=== PATIENT | female | born 1965 | race Caucasian/White ===

== ENCOUNTER 2016-12-22 17:41 | Emergency (ER) | payer OTHER ==
[2016-12-22] MEDS ORDERED: HYDROcod/ACETAM 5/325 MG TABLET PO STA (18:04)
[2016-12-22] MEDS ORDERED: HYDROcod/ACETAM 5/325 MG TABLET ONE (18:08)
--- NOTE | 2016-12-22 18:08 | ED Physician Documentation ---
PD HPI LOWER EXT INJURY - Stated complaint Stated Complaint: R KNEE PAIN - Chief complaint Chief Complaint: Ext Problem - History obtained from History obtained from: Patient, Family, EMS - History of Present Illness PD HPI LOW EXT INJURY LOCATION: Right, Knee Type of injury: Other (states that her [place] out[place], now with increasing pain and unable to bear weight) Where injury occurred: Other (beach) Timing - onset: How many hours ago (1) Timing - duration: Hours (1) Timing - details: Abrupt onset Pain level max: 9 Pain level now: 7 Improved by: Rest, Ice, Immobilization Worsened by: Moving, Palpating Associated symptoms: No: Weakness, Numbness, Tingling, Swelling Contributing factors: No: Anticoagulated, Prior ortho surgery Similar symptoms before: Has not had sx before Recently seen: Not recently seen Review of Systems Constitutional: denies: Fever GI: denies: Vomiting Musculoskeletal: denies: Neck pain, Back pain Neurologic: denies: Focal weakness, Numbness, Head injury PD PAST MEDICAL HISTORY - Past Medical History Past Medical History: Yes Cardiovascular: Coronary artery disease Psych: Anxiety, Post traumatic stress disorder - Present Medications Home Medications: Ambulatory Orders Medication Instructions Recorded Confirmed Gabapentin 12/22/16 Hydrocodone/Acetaminophen 1 - 2 each PO Q6H PRN #14 tablet 12/22/16 [Hydrocodon-Acetaminophen 5-325] Ibuprofen [Motrin] 800 mg PO Q8H PRN #30 tablet 12/22/16 LORazepam [Ativan] 12/22/16 Telmisartan [Micardis] 12/22/16 Zolpidem [Ambien] 12/22/16 - Allergies Allergies/Adverse Reactions: Allergies Allergy/AdvReac Type Severity Reaction Status Date / Time No Known Drug Allergies Allergy Verified 12/22/16 17:50 - Social History Does the pt smoke?: No Smoking Status: Never smoker Does the pt drink ETOH?: Yes - Immunizations Immunizations are current?: Yes PD ED PE NORMAL - Vitals Vital signs reviewed: Yes - General General: Alert and oriented X 3, No acute distress - Derm Derm: Warm and dry - Extremities Extremities: Other (R knee - ACL, MCL, LCL, PCL are intact. Mild joint effusion. Neurovascularly intact. Tenderness along the medial joint line.) - Neuro Neuro: Alert and oriented X 3 - Psych Psych: Normal mood, Normal affect Results - Vitals Vitals: Vital Signs - 24 hr 12/22/16 12/22/16 17:50 19:20 Temperature 36.5 C Heart Rate 94 108 H Respiratory 17 18 Rate Blood Pressure 132/84 H 146/84 H O2 Saturation 99 96 Oxygen O2 Source Room air - Rads (name of study) R knee xray Radiology: Prelim report reviewed, EMP read contemporaneously, See rad report ( normal) PD MEDICAL DECISION MAKING - ED course Complexity details: reviewed results, re-evaluated patient, considered differential, d/w patient ED course: Patient is a 51-year-old female who presents to the emergency department with what appears to be a right knee sprain. Placed in a knee immobilizer for comfort. Ambulating well with crutches. No acute findings on x-ray. Knee is stable on examination. Possible meniscus injury? Will have her follow-up with her doctor for further evaluation and care. Patient counseled regarding signs and symptoms for which I believe and urgent re-evaluation would be necessary. Patient with good understanding of and agreement to plan and is comfortable going home at this time This document was made in part using voice recognition software. While efforts are made to proofread this document, sound alike and grammatical errors may occur. Departure - Departure Disposition: 01 Home, Self Care Clinical Impression: Right knee sprain Qualifiers: Encounter type: initial encounter Involved ligament of knee: unspecified ligament Qualified Code(s): S83.91XA - Sprain of unspecified site of right knee , initial encounter Condition: Good Instructions: ED Sprain Knee Follow-Up: Provider,Other [Primary Care Provider] - Within 1 week (for repeat evaluation of your knee) Prescriptions: Hydrocodone/Acetaminophen [Hydrocodon-Acetaminophen 5-325] 1 - 2 each PO Q6H PRN #14 tablet PRN Reason: pain Ibuprofen [Motrin] 800 mg PO Q8H PRN #30 tablet PRN Reason: PAIN &/OR FEVER Comments: You should wear the knee immobilizer for the next 2-3 days. You may bear weight as tolerated. Return if you worsen. Do not drink alcohol or drive while on narcotic pain medicine. Note that many narcotic pain relievers also contain tylenol/acetaminophen. Please ensure that your total dose of acetaminophen from all sources does not exceed 3 grams (3000mg) per day. You may constipated on this medication, take a stool softener such as "Colace" twice a day while you are on it. Also recommend a [id number] laxative such as senna or MiraLAX any day that you do not have a bowel movement. If you received narcotic pain medication in the emergency department, do not drive or operate machinery for the next 24 hours. Your blood pressure was elevated today on check in to the emergency department. This does not mean that you have hypertension, it is a common phenomenon to check into the emergency department and have elevated blood pressure. I recommend that you see your primary care physician within the week to have it rechecked when you're feeling better. Discharge Date/Time: 12/22/16 19:31
--- NOTE | 2016-12-22 18:55 | XRAY Preliminary Report ---
Exam: XR Knee 4 View RT IMPRESSION: No acute right knee bony abnormality. Minimal degenerative patellofemoral compartment spu rring. [facility] SITE ID: [id number]
--- NOTE | 2016-12-22 18:58 | XRAY Report ---
EXAM: RIGHT KNEE RADIOGRAPHY EXAM DATE: 12/22/2016 06:23 PM. CLINICAL HISTORY: Fall, knee pain. COMPARISON: None. TECHNIQUE: 4 views. FINDINGS: Bones: Normal. No fractures or bone lesions. Joints: Minimal spurring of the superior pole of the patella. No joint effusion. Soft Tissues: Normal. No soft tissue swelling. IMPRESSION: No acute right knee bony abnormality. Minimal degenerative patellofemoral compartment spu duying. YOGESH Referring Provider Line: [phone] SITE ID: [id number]
[2016-12-22 19:21] VITALS: BP 146/84
== END 2016-12-22 19:31 | disposition home or self-care (01) ==
LOC: ED 17:41
DX: S83.91XA Sprain of unspecified site of right knee, initial encounter (principal); W18.39XA Other fall on same level, initial encounter; Y92.832 Beach as the place of occurrence of the external cause; I25.10 Atherosclerotic heart disease of native coronary artery without angina pectoris; R03.0 Elevated blood-pressure reading, without diagnosis of hypertension
CPT/HCPCS: 29530; 99283